=== PATIENT | male | born 1995 | race Caucasian/White ===

== ENCOUNTER → 2017-09-15 | Emergency (ER) | payer OTHER ==
[~2017-09-15] VITALS: Ht 154.9 cm; Wt 54.4 kg
[~2017-09-15] MED LIST: BREO ELLIPTA 21 EACH; IPRATROPIU0.2 MG/1 M; OSEL75CA PO; PROTONIX40 MG; SINGULAIR10 MG; TUSSI PRES-B L120 M1 PO; TUSSIONEX PENNKI5 ML PO; ZITHROMAX TRI-500 MG PO; ZYRTEC10 MG PO; [UNRECOGNIZED DRUG - OTHER]
== END | disposition home or self-care (01) ==
LOC: ER 11:53
DX: B34.9 Viral infection, unspecified (principal)

== ENCOUNTER 2018-11-08 10:38 | Inpatient (IN) | payer OTHER ==
[~2018-11-08] VITALS: Ht 154.9 cm; Wt 59.0 kg
--- NOTE | 2018-11-08 10:55 | NUR ---
SE RECIBE PTE. MASCULINO ALERTA CONCIENTE EN COMPANIA DE MADRE PTE. REFIERE PALPITAIONES Y EN EMILY MOMENTO LE DANE DOLOR DE PECHO. AHORA NO SIENTE LAS PALPITCIONES. SE REALIZA EKG Y SE PRESENTA AMEDICO PARA EVALUACION Y FIRMA.
--- NOTE | 2018-11-08 11:37 | NUR ---
EVALUADO POR EL SE ORIENTA SOBRE TRATAMIENTO MEDICO Y LA UNIDAD. CONECTADO A MONITOR CARDIACO, ALERTA, ORIENTADO POR REGINA. ACOMPANADO POR FAMILIAR . NO PRESENTA DOLOR DE PECHO AL MOMENTO SE MANTIENE EN OBSERVACION.
--- NOTE | 2018-11-08 15:13 | NUR ---
SE RECIBE PACIENTE EN [place] 16 EN UNIDAD DE CHEST PAIN, ALERTA Y ORIENTADO X3 DEBIDO A HX DE CHEST PAIN, AL MOMENTO PACIENTE NO REFIERE NINGUN TIPO DE DOLOR, SE CONTINUA MONITOREANDO POR CAMBIOS. PACIENTE AL MOMENTO ACOMPANADO DE MENDOZA MADRE TOLER[place] MEDICO ORDENADO. VENOPUNCION PATENTE, BRYN DE EDEMA Y ERITEMA. SE CONTINUA MONITOREANDO POR CAMBIOS.
--- NOTE | 2018-11-08 18:46 | NUR ---
SE GUI MARGO PREVENTIVA, PACIENTE AL MOMENTO ESTABLE, SIGNOS VITALES ESTABLES, ALERTA Y ORIENTADO X3 ACOMPANADO DE FAMILIAR. VENOPUNCION PATENTE, BRYN DE EDEMA Y ERITEMA. BARANDAS ELEVADAS POR SEGURIDAD, NURSE CALL ACCESIBLE Y FRENO DE [place]. SE CONTINUA MONITOREANDO POR CAMBIOS SIGNIFICATIVOS AL MOMENTO EN OBSERVACION CONTINUA.
--- NOTE | 2018-11-08 23:24 | NUR ---
SE RECIBE PTE DEL TURNO ANTERIOR,PTE MASCULINO DE 23 YRS,PTE ALERTA X 3, EN HUMPRHEY CON BARANDAS ELEVADAS POR MENDOZA SEGURIDAD,PTE CONECTADO A MONITOR CARDIACO Y OXIMETRIA DE PULSO,PTE CON H/L PATENTE Y BRYN DE EDEMA Y/O ERITEMA EN AREA DE VENOPUNCION,S/V TOMADOS Y PASADOS A GRAFICAS,PTE EN OVERNIGHT DEL DR LYNN,SE OBSERVARAN POR CAMBIOS EN MENDOZA CONDCION DE ALVAREZ.
--- NOTE | 2018-11-09 00:19 | NUR ---
SE LE ARIANNA MUESTRA DE TROPONINA BAJO MEDIDAS ASEPTICAS Y SE ENVIA A LABORATORIO PARA RESULTADOS.
--- NOTE | 2018-11-09 07:34 | NUR ---
SE RECIBE PTE MASCULINO EN LA UNIDAD DE CRITICO EN CUBICULO #3 EN CAMA CON BARANDS ELEVADA Y TOMBRE ACCESIBLE, CONECTADO A MONITOR CARDIACO Y OXYMETRIA DE PULSO, PTE ALERTA Y CONCIENTE POR 3 NO PRESENTA DOLOR AL MOMENTO,SE OBSERVA VENOPUNCION PATENTE Y BRYN DE EDEMA, PTE SE MANTIENE EN OBSERVACION Y BAJO TRATAMIENTO.
== END 2018-11-10 14:50 | disposition home or self-care (01) | DRG 313 ==
LOC: ER 10:38 → MEDI 11-09 07:21
PROVIDERS: ADMIT Student in an Organized Health Care Education/Training Program
PROC: 4A12X4Z Monitoring of Cardiac Electrical Activity, External Approach (ICD-10-PCS; principal; 2018-11-09)
PROC: B246ZZZ Ultrasonography of Right and Left Heart (ICD-10-PCS; 2018-11-09)
DX: R07.89 Other chest pain (principal); R74.8 Abnormal levels of other serum enzymes

== ENCOUNTER 2022-08-11 15:31 | Emergency (ER) | payer OTHER ==
[~2022-08-11] VITALS: Ht 157.5 cm; Wt 66.7 kg
[2022-08-11] MEDS ORDERED: PROPRANOLOL HCL10 MG PO (15:57)
== END 2022-08-11 19:48 | disposition home or self-care (01) ==
LOC: ER 15:31
DX: R07.89 Other chest pain (principal)

== ENCOUNTER 2022-10-17 09:24 | Emergency (ER) | payer OTHER ==
[~2022-10-17] VITALS: Ht 157.5 cm; Wt 64.9 kg
[~2022-10-17 09:24] MED LIST changes: +PROPRANOLOL HCL10 MG PO
== END 2022-10-17 15:11 | disposition home or self-care (01) ==
LOC: ER 09:24
DX: M54.59 Other low back pain (principal)

== ENCOUNTER 2023-07-06 16:58 | Emergency (ER) | payer OTHER ==
[~2023-07-06] VITALS: Ht 152.4 cm; Wt 66.2 kg
[2023-07-06] MEDS ORDERED: MAGNESIUM200 MG (17:39)
== END 2023-07-06 19:18 | disposition home or self-care (01) ==
LOC: ER 16:58
DX: K59.00 Constipation, unspecified (principal)

== ENCOUNTER 2023-10-03 17:32 | Emergency (ER) | payer OTHER ==
[~2023-10-03] VITALS: Ht 157.5 cm; Wt 65.3 kg
[~2023-10-03 17:32] MED LIST changes: +MAGNESIUM200 MG
[2023-10-03] MEDS ORDERED: KETOROLAC TROMETHAMINE 60 MG VIAL IM ONE (20:30)
[2023-10-03] MEDS ORDERED: AMOX-CLAV 875-1 EAC1 PO (22:29)
== END 2023-10-03 23:05 | disposition home or self-care (01) ==
LOC: ER 17:32
DX: C44.209 Unspecified malignant neoplasm of skin of left ear and external auricular canal (principal); Z20.822 Contact with and (suspected) exposure to COVID-19

== ENCOUNTER 2023-10-22 13:10 | Inpatient (IN) | payer OTHER ==
[~2023-10-22] VITALS: Ht 157.5 cm; Wt 64.9 kg
[~2023-10-22 13:10] MED LIST changes: +AMOX-CLAV 875-1 EAC1 PO
[2023-10-22] MEDS ORDERED: METHYLPREDNISOLONE SOD SUCC 125 MG VIAL IV STA (15:23)
[2023-10-22] MEDS ORDERED: HYDROCODONE/CHLORPHEN P-STIREX 5 ML ML PO STA (15:23)
[2023-10-22] MEDS ORDERED: LEVALBUTEROL HCL 1.25 MG/3 ML SOLUTION IH SCH (15:30)
[2023-10-22 17:07] LABS: HEMATOCRIT 47.3 % (39.0-48.0); HEMOGLOBIN 16.4 g/dL (13-16.00); MEAN CELL VOLUME 85.6 fL (80.0-100.00); MEAN CORPUSCULAR HEMOGLOBIN 29.7 pg (27.00-32.0); MEAN CORPUSCULAR HGB CONC 34.7 g/dl (32.0-36.0); PLATELET COUNT 185 K/uL (150-450); RED BLOOD COUNT 5.52 M/uL (4.00-6.00); RED CELL DISTRIBUTION WIDTH 12.8 % (11.5-14.5)
[2023-10-22] MEDS ORDERED: CEFTRIAXONE SODIUM 2,000 MG in 0.9 % SODIUM CHLORIDE 100 ML IV SCH (19:44)
[2023-10-22] MEDS ORDERED: AZITHROMYCIN 500 MG in DEXTROSE 5 % IN WATER 250 ML IV SCH (19:44)
[2023-10-22] MEDS ORDERED: ONDANSETRON HCL 4 MG in 0.9 % SODIUM CHLORIDE 50 ML IV PRN (19:45)
[2023-10-22] MEDS ORDERED: ACETAMINOPHEN 500 MG GEL..CAP PO PRN (19:45)
[2023-10-22] MEDS ORDERED: 0.9 % SODIUM CHLORIDE 1,000 ML IV SCH (19:45)
[2023-10-22] MEDS ORDERED: LEVALBUTEROL HCL 0.63 MG/3 ML SOLUTION IH SCH (21:00)
[2023-10-22] MEDS ORDERED: IPRATROPIUM BROMIDE 0.5 MG/2.5 ML AMPUL.NEB IH SCH (21:00)
[2023-10-22 21:06] LABS: INR 1.09; PARTIAL THROMBOPLASTIN TIME 29.9 SECONDS (22.0-34.0); PROTHROMBIN TIME 11.4 SECONDS (9.0-11.5)
[2023-10-22 21:10] LABS: ALBUMIN 3.9 gm/dL (3.4-5.0); BILIRUBIN TOTAL 0.74 mg/dL (0.3-1.2); C-REACTIVE PROTEIN 4.42 MG/DL (0.00-0.29); CALCIUM 9.5 mg/dL (8.5-10.1); CREATININE SERUM 1.32 mg/dL (0.70-1.30); GFR 64.58; GLOBULINA 4.4 G/DL (2.4-3.5); POTASSIUM 3.33 mEq/L (3.5-5.1); TOTAL PROTEIN 8.3 gm/dL (6.4-8.2)
[2023-10-22 23:20] LABS: PH,URINE 6.5 (5.0-8.0); URINE APPEARANCE Clear; URINE BILIRRUBIN Negative (NEGATIVE); URINE BLOOD Small; URINE COLOR Yellow; URINE GLUCOSE Negative (NEGATIVE); URINE LEUKOCYTE Moderate; URINE NITRATE Negative; URINE PROTEIN Negative (NEGATIVE); URINE UROBILINOGEN 0.2 E.U./dl
[2023-10-22 23:24] LABS: URINE BACTERIA 295.9 uL (0.0-1933); URINE RBC 22.5 uL (0.0-20.8); URINE WBC 529.1 uL (0.0-23.2)
[2023-10-23] MEDS ORDERED: GUAIFENESIN/DEXTROMETHORPHAN 100 MG/5 ML ML PO SCH
[2023-10-23] MEDS ORDERED: METHYLPREDNISOLONE SOD SUCC 40 MG VIAL IV SCH (01:00)
[2023-10-23] MEDS ORDERED: IPRATROPIUM BROMIDE 0.5 MG/2.5 ML AMPUL.NEB IH ONE (01:34)
[2023-10-23] MEDS ORDERED: FAMOTIDINE/PF 20 MG in 0.9 % SODIUM CHLORIDE 8 ML IV PUSH SCH ×2 (09:00→21:00)
[2023-10-23] MEDS ORDERED: BUDESONIDE 0.5 MG/2 ML AMPUL.NEB IH SCH (10:39)
[2023-10-23] MEDS ORDERED: MONTELUKAST SODIUM 10 MG TABLET PO SCH (17:00)
[2023-10-24] MEDS ORDERED: IPRATROPIUM BROMIDE 0.5 MG/2.5 ML AMPUL.NEB IH ONE ×4 (01:40→13:09)
[2023-10-24 08:04] LABS: HEMATOCRIT 45.9 % (39.0-48.0); HEMOGLOBIN 15.6 g/dL (13-16.00); MEAN CELL VOLUME 85.5 fL (80.0-100.00); MEAN CORPUSCULAR HGB CONC 33.9 g/dl (32.0-36.0); PLATELET COUNT 205 K/uL (150-450); RED BLOOD COUNT 5.37 M/uL (4.00-6.00); RED CELL DISTRIBUTION WIDTH 13.2 % (11.5-14.5)
[2023-10-24 08:21] LABS: ALBUMIN 3.4 gm/dL (3.4-5.0); BILIRUBIN TOTAL 0.56 mg/dL (0.3-1.2); CALCIUM 8.9 mg/dL (8.5-10.1); CREATININE SERUM 1.17 mg/dL (0.70-1.30); GFR 74.23; GLOBULINA 3.6 G/DL (2.4-3.5); POTASSIUM 3.88 mEq/L (3.5-5.1)
[2023-10-24] MEDS ORDERED: METHYLPREDNISOLONE SOD SUCC 40 MG VIAL IV SCH (17:00)
[2023-10-24 17:29] LABS: PH,URINE 7.5 (5.0-8.0); URINE APPEARANCE Clear; URINE BILIRRUBIN Negative (NEGATIVE); URINE BLOOD Negative; URINE COLOR Yellow; URINE GLUCOSE Negative (NEGATIVE); URINE LEUKOCYTE Moderate; URINE NITRATE Negative; URINE PROTEIN Negative (NEGATIVE); URINE UROBILINOGEN 0.2 E.U./dl
[2023-10-24 17:33] LABS: URINE BACTERIA 35.2 uL (0.0-1933); URINE EPITHELIAL CELLS 2.3 uL (0.0-38.8); URINE RBC 6.4 uL (0.0-20.8); URINE WBC 248.8 uL (0.0-23.2)
[2023-10-25 08:04] LABS: HEMATOCRIT 46.4 % (39.0-48.0); HEMOGLOBIN 15.8 g/dL (13-16.00); MEAN CELL VOLUME 85.8 fL (80.0-100.00); MEAN CORPUSCULAR HEMOGLOBIN 29.3 pg (27.00-32.0); MEAN CORPUSCULAR HGB CONC 34.1 g/dl (32.0-36.0); PLATELET COUNT 186 K/uL (150-450); RED BLOOD COUNT 5.41 M/uL (4.00-6.00); RED CELL DISTRIBUTION WIDTH 12.7 % (11.5-14.5)
[2023-10-25] MEDS ORDERED: IPRATROPIUM BROMIDE 0.5 MG/2.5 ML AMPUL.NEB IH ONE (13:00)
== END 2023-10-25 13:48 | disposition home or self-care (01) | DRG 203 ==
LOC: ER 13:10 → MEDJ 20:07
PROVIDERS: General Practice; Internal Medicine; Student in an Organized Health Care Education/Training Program; ADMIT Internal Medicine; ATTEND Internal Medicine
PROC: 3E0F7GC Introduction of Other Therapeutic Substance into Respiratory Tract, Via Natural or Artificial Opening (ICD-10-PCS; principal; 2023-10-22)
DX: J45.41 Moderate persistent asthma with (acute) exacerbation (principal); J20.9 Acute bronchitis, unspecified; B34.9 Viral infection, unspecified